=== PATIENT | male | born 1970 | race African-American/Black ===

== ENCOUNTER 2019-06-14 13:31 | Inpatient (IN) | payer MEDICARE ==
[~2019-06-14] VITALS: Ht 170.2 cm; Wt 166.5 kg
[2019-06-14] MEDS ORDERED: SODIUM CHLORIDE 0.9% 1000ML 1,000 ML IV SCH (14:00)
[2019-06-14] MEDS ORDERED: DEXAMETHASONE SOD PHOS 10 MG/1 ML VIAL IV ONE (14:30)
[2019-06-14] MEDS ORDERED: DEXAMETHASONE SOD PHOS 10 MG/1 ML VIAL ONE (14:39)
[2019-06-14] MEDS ORDERED: SODIUM CHLORIDE 0.9% 1000ML 1,000 ML ONE (14:40)
[2019-06-14] MEDS ORDERED: CEFTRIAXONE SOD 1 GM VIAL ONE ×2 (14:40)
--- NOTE | 2019-06-14 14:45 | NUR ---
[facility] CALLED FOR TRANSPORT 30MIN ETA
--- NOTE | 2019-06-14 14:54 | NUR ---
ATTEMPTED STRAIGHT CATH UNABLE TO COMPLETE PROCEDURE DUE TO OBSTRUCTION
--- NOTE | 2019-06-14 14:54 | NUR ---
REPORT TO [facility] ALL QUESTIONS ANSWERED
[2019-06-14] MEDS ORDERED: CEFTRIAXONE SOD 2 GM/NS 100 ML 100 ML IV ONE (15:00)
--- NOTE | 2019-06-14 15:22 | NUR ---
REPORT TO [facility] ALL QUESTIONS ANSWERED
--- NOTE | 2019-06-14 15:48 | NUR ---
PATIENT RECEIVED FROM [facility] VIA [facility]. TRANSPORTED TO ER ROOM 6, [facility]. NO SIGNS OF ACUTE DISTRESS NOTED DURING TRIAGE. VERBAL REPORT GIVEN TO DYLAN PEREZ.
[2019-06-14 16:37] LABS: BILIRUBIN,URINE NEGATIVE (NEGATIVE); CLARITY,URINE SL CLOUDY (CLEAR); COLOR,URINE YELLOW (YELLOW); KETONES,URINE NEGATIVE (NEGATIVE); LEUKOCYTE ESTERASE ,URINE SMALL (NEGATIVE); NITRITE,URINE NEGATIVE (NEGATIVE); PROTEIN,URINE DIPSTICK NEGATIVE (NEGATIVE); URINE UROBILINOGEN 0.2 mg/dL (0.2 - 1)
[2019-06-14 16:53] LABS: BACTERIA,URINE FEW /HPF; EPITHELIAL CELLS,URINE MODERATE /LPF; RBC,URINE 0-5 /HPF (0-5)
--- NOTE | 2019-06-14 16:54 | NUR ---
INFORMED CONSENT SIGNED AND PLACED ON PT CHART, SIGNED WITNESS PT WAS MADE AWARE OF RISKS, BENEFITS, AND ALTERNATIVE TREATMENTS FROM ER MD AT [facility].
[2019-06-14] MEDS ORDERED: LIDOCAINE HCL 1% LOCAL INJ 20 ML VIAL ONE (16:56)
[2019-06-14] MEDS ORDERED: MORPHINE SULFATE INJ 4 MG/ML INJ 1ML IV PRN (17:00)
--- NOTE | 2019-06-14 17:32 | Diagnostic Imaging Report ---
History: Headache, fall Comparison studies: None Technique: Axial images were obtained from the skull base to the vertex. Coronal and sagittal reconstructions obtained from the axial data. Dose modulation, iterative reconstruction, and/or weight based adjustment of the mA/kV was utilized to reduce the radiation dose to as low as reasonably achievable. Findings: Scalp/skull: No abnormalities. No fractures, blastic or lytic lesions. Extra-axial spaces: No masses. No fluid collections. Brain sulci: Appropriate for age. Ventricles: Normal in size and configuration. No hydrocephalus. Parenchyma: No abnormal densities. No masses, hemorrhage, acute or chronic cortical vascular insults. Sellar/suprasellar region: No abnormalities Craniocervical junction: Patent foramen magnum. No Chiari one malformation. IMPRESSION: No abnormalities . Signed by: DR Juan Rice M.D. on 06/14/2019 5:29 PM
[2019-06-14] MEDS ORDERED: VANCOMYCIN 1GM/NS 250 ML 250 ML IV STA (18:40)
[2019-06-14] MEDS ORDERED: ONDANSETRON HCL INJ 2MG/ML 2ML 2 MG/ML VIAL IV PRN (18:45)
[2019-06-14] MEDS: SODIUM CHLORIDE 0.9% 1000ML 1,000 ML IV SCH ×2 (19:46→23:16)
--- OUTSIDE RECORDS SUMMARY | 2019-06-14 21:45 | XMS REPORT ---
Author Author [facility] Address Unknown Phone Unavailable Care Team Providers Care Acid Dipper Name Role Phone CHARLES RIOS Unavailable Unavailable Problems This patient has no known problems. Allergies, Adverse Reactions, Alerts This patient has no known allergies or adverse reactions. Medications This patient has no known medications. Results Test Description Test Time Test Comments Text Results Atomic Results Result Comments CT BRAIN WO 2019-06-14 17:24:00 [place] [id number] Patient Name: RAQUEL MARTINEZ MR #: [id number] : 1970 Age/Sex: 49/M Req #: [id number] Adm Physician: Ordered by: MARION TSE MD Report #: [id number] Location: ER Room/Bed: Procedure: [id number] CT/CT BRAIN WO Exam Date: 06/14/19 Exam Time: 1700 REPORT STATUS: Signed History: Headache, fall Comparison studies: None Becca hnique: Axial images were obtained from the skull base to the vertex. Coronal and sagittal reconstructions obtained from the axial data. Dose modulation, iterative reconstruction, and/or weight based adjustment of the mA/kV was utilized to reduce the radiation dose to as low as reasonably achievable. Findings: Scalp/skull: No abnormalities. No fractures, blastic or lytic lesions. Extra-axial spaces: No masses. No fluid collections. Brain sulci: Appropriate for age. Ventricles: Normal in size and configuration. No hydrocephalus. Parenchyma: No abnormal densities. No masses, hemorrhage, acute or chronic cortical vascular insults. Sellar/suprasellar region: No abnormalities Craniocervical junction: Patent foramen magnum. No Chiari one malformation. IMPRESSION: No abnormalities . Signed by: DR Juna Rice M.D. on 06/14/2019 5:29 PM Dictated By: JUAN VICTOR MD 28 Transcribed By: MILEY on 06/14/191728 COPY TO: MARION TSE MD
--- NOTE | 2019-06-14 21:51 | NUR ---
Received report from LEE ANN Jarrett nurse. accompanied patient. Patient is A&Ox4. Patient in no distress. Call light within reach.
[2019-06-14 22:07] VITALS: BP 142/84
[2019-06-14] MEDS ORDERED: INFLUENZA VIRUS VAC SPLIT INJ 0.5 ML SYR IM SCH (23:49)
[2019-06-14 23:53] VITALS: BP 142/84
[2019-06-15] VITALS (10 sets, daily range): BP systolic 121–143; BP diastolic 59–87
[2019-06-15] MEDS: MORPHINE SULFATE INJ 4 MG/ML INJ 1ML IV PRN ×2 (00:47→10:53)
[2019-06-15 06:31] LABS: BASOPHILS % 0.2 % (0.0-1.0); EOSINOPHILS # (AUTO) 0.1 (0.0-0.4); EOSINOPHILS % 0.3 % (0.0-6.0); HEMOGLOBIN 12.6 g/dL (14.0-18.0); LYMPHOCYTES % 4.9 % (18.0-39.1); MEAN CORPUSCULAR HGB CONC 33.2 g/dL (31-35); MEAN CORPUSCULAR VOLUME 87.4 fL (81-99); MONOCYTES # (AUTO) 1.6 (0.2-0.8); MONOCYTES % 7.7 % (4.4-11.3); NEUTROPHILS # (AUTO) 17.8 (2.1-6.9); NEUTROPHILS % 86.3 % (38.7-80.0); PLATELET COUNT 165 x10e3/uL (140-360); RED BLOOD COUNT 4.35 x10e6/uL (4.3-5.7); RED CELL DISTRIBUTION WIDTH 13.5 % (11.7-14.4)
[2019-06-15] MEDS: SODIUM CHLORIDE 0.9% 1000ML 1,000 ML IV SCH ×2 (07:18→15:54)
--- NOTE | 2019-06-15 07:21 | NUR ---
Patient in bed. Call light within reach. Gave report to oncoming nurse. at bedside
--- NOTE | 2019-06-15 09:15 | NUR ---
Spoke to . aware of consult
--- NOTE | 2019-06-15 09:21 | NUR ---
chel Nichols of [facility]
[2019-06-15] MEDS ORDERED: INFLUENZA VIRUS VAC SPLIT INJ 0.5 ML SYR IM ONE (11:15)
[2019-06-15 11:58] LABS: PLATELET ESTIMATE MODERATELY DECREASED; PLATELET MORPHOLOGY COMMENT FEW LARGE
[2019-06-15] MEDS ORDERED: DIBUCAINE TOP (12:03)
[2019-06-15] MEDS ORDERED: VITAMIN D1000 UNI1 PO (12:03)
[2019-06-15] MEDS ORDERED: BUPROPION XL150 MG PO (12:03)
[2019-06-15] MEDS ORDERED: GABAPENTIN300 MG PO (12:03)
[2019-06-15] MEDS ORDERED: POLYETHYLENE GL17 GM PO (12:03)
[2019-06-15] MEDS ORDERED: bisacodyl RC (12:03)
[2019-06-15] MEDS ORDERED: LISINOPRIL10 MG PO (12:03)
[2019-06-15] MEDS ORDERED: CRESTOR10 MG PO (12:03)
[2019-06-15] MEDS ORDERED: ATENOLOL50 MG PO (12:03)
[2019-06-15] MEDS ORDERED: SENNA LAX8.6 MG PO (12:03)
[2019-06-15] MEDS ORDERED: baclofen IT (12:03)
[2019-06-15] MEDS ORDERED: FUROSEMIDE40 MG PO (12:03)
[2019-06-15] MEDS ORDERED: DOCUSATE SODIU100 MG PO (12:03)
[2019-06-15] MEDS: CEFTRIAXONE SOD 1 GM/NS 50 ML 50 ML IV SCH (15:54)
[2019-06-15] MEDS ORDERED: BACLOFEN IT SCH (18:00)
--- NOTE | 2019-06-15 18:41 | NUR ---
Patient voided. Bladder scan done post void. 19ml noted.
--- NOTE | 2019-06-15 18:50 | NUR ---
Received report from previous nurse. Call light within reach. Patient in bed. at bedside
--- NOTE | 2019-06-15 19:10 | NUR ---
Report given to oncoming nurse. Resting in bed. No s/s of acute distress noted. Side rails upx2 , call light within reach, at bedside.
[2019-06-15] MEDS: DIBUCAINE 1% TOP SCH (21:00)
[2019-06-15] MEDS: BISACODYL 10 MG SUPP PR SCH (21:00)
--- NOTE | 2019-06-15 21:52 | Consultation ---
DATE OF CONSULTATION: 06/15/2019 Neurology Consult Note HISTORY OF PRESENT ILLNESS: Mr. Coleman is a 49-year-old right-hand dominant man with past medical history significant for hypertension, hyperlipidemia, occasional headaches, and spinal cord injury at C3-C4, admitted to [facility] as an inpatient on June 14, 2019, with fever of unknown origin. On the day prior to admission, Mr. Coleman felt unwell upon awakening. Later in the day, the patient took his temperature, blood pressure, and heart rate. His temperature was reportedly 103 degrees Fahrenheit. His blood pressure was in the 180s over 100 mmHg with a pulse in the 100s. Subsequently, Mr. Coleman began to experience headache, which he described as follows: The pain was located over the left side of the head and did not radiate. The pain was described as throbbing and rated an 8 to 9/10. Associated with the headache were photophobia, mild phonophobia, and dizziness, which is further described as a vertiginous sensation. Mr. Coleman does not report an aura, visual disturbance, nausea, vomiting, or confusion associated with the headache. After developing the headache, the patient took a dose of ibuprofen, then laid down to sleep, hoping his symptoms would be resolved when he awakens next. However, upon awakening on the morning of June 14, 2019, the patient continued to be febrile with headache as described above. Mr. Coleman arose from bed and was ambulating with his walker when he experienced a fall. He remained on the floor until his arrived home to assist him in standing from the floor. At that time, his took his temperature again. Once again, it was found to be elevated. Mr. Coleman's then took him to an urgent care center for further evaluation of his symptoms. Mr. Coleman was directly admitted to [facility] as an inpatient on June 14, 2019, with a diagnosis of fever of unknown origin. Concerned the patient may have meningitis, a referral to Interventional Radiology for a lumbar puncture was made. Unfortunately, the lumbar puncture by Interventional Radiology was unsuccessful. While in the hospital, the patient has been afebrile. At present, his headache has resolved as well. As detailed above, Mr. Coleman does endorse a prior history of occasional headaches. However, he reports it has "been a while" since he last experienced the headache. In the past, when he has experienced the headache, he has taken an [id number]-[id number] analgesic and laid down to sleep for a few hours. More often than not, when he awoke, the patient's headaches had resolved. There is no known family history of primaryheadache disorders. REVIEW OF SYSTEMS: Fever, urinary incontinence, low back pain at the lumbar puncture site, headache, photophobia, phonophobia, and dizziness, which is further described as a vertiginous sensation. Otherwise, 12-point review of systems is negative. PAST MEDICAL HISTORY: Hypertension, hyperlipidemia, occasional headaches, and spinal cord injury at C3-C4. PAST SURGICAL HISTORY: Baclofen pump placement, cervical spine surgery in 2009. PAST HOSPITALIZATIONS: Surgeries/procedures, [facility]- discharge two weeks ago. FAMILY MEDICAL HISTORY: Hypertension, diabetes mellitus, and congestive heart failure. SOCIAL HISTORY: Mr. Coleman is . He is unemployed/on disability. Mr. Coleman does report a prior history of tobacco use, but he quit smoking cigarettes approximately 10 years ago. The patient endorses a prior history of heavy alcohol use as well. However, he describes his current alcohol use is occasional. There is no reported current or prior recreational drug use. HOME MEDICATIONS: Dibucaine 1% topical ointment apply topically at bedtime, atenolol 25 mg by mouth daily, baclofen pump, bisacodyl 10 mg rectal suppository at bedtime daily, bupropion XL 150 mg by mouth daily, cholecalciferol 1000 international units by mouth daily, docusate sodium 100 mg by mouth every 12 hours, furosemide 40 mg by mouth daily, gabapentin 600 mg by mouth 3 times daily, lisinopril 20 mg by mouth daily, polyethylene glycol 3350, 1 packet by mouth daily, rosuvastatin 10 mg by mouth daily, and Senna 8.6 mg by mouth every afternoon. HOSPITAL MEDICATIONS: Ceftriaxone, morphine sulfate, and Zofran. ALLERGIES: NO KNOWN DRUG ALLERGIES. NO KNOWN FOOD ALLERGIES. NO KNOWN ALLERGIES TO LATEX. NO KNOWN ALLERGIES TO IODINE OR OTHER CONTRAST MATERIALS. PHYSICAL EXAMINATION: VITAL SIGNS: Height 67 inches, weight 350.56 pounds, BMI 54.9 kg/m2, blood pressure 143/64 mmHg, pulse 68 beats per minute, respiratory rate 22 breaths per minute, and oxygen saturation 96% on room air. GENERAL: The patient is awake and alert, does not appear distressed. Morbidly obese. HEENT: Normocephalic, atraumatic. Pupils are equal, round, and reactive to light. Moist mucous membranes. NECK: Supple. No appreciable thyromegaly. No appreciable carotid bruits. CARDIOVASCULAR: S1, S2, regular rate and rhythm. No murmurs, rubs, or gallops. RESPIRATORY: Clear to auscultation bilaterally. No wheezes, rhonchi, or rales. EXTREMITIES: The skin is warm and dry. No clubbing or cyanosis. 1+ pretibial pitting edema is appreciated. The posterior tibial and dorsalis pedis pulses are 1+ and symmetric. SKIN: No rashes or lesions. NEUROLOGIC: Memory/Attention: The patient is awake and alert, oriented to person, place, time, and situation. Cranial Nerves: Cranial nerve I - not tested. Cranial nerve II, III, IV, and - pupils are equal and round, react briskly to light (from 4 mm to 2 mm). Extraocular movements intact. No nystagmus. Cranial nerve V - sensation to light touch and pinprick is diminished over the right V1 through V3 distributions. Strength in the temporalis and masseter muscles is within normal limits. Cranial nerve VII - the face is symmetric as are all facial movements. Strength is within normal limits. Cranial nerve VIII - hearing is intact to finger rub bilaterally. Cranial nerve IX, X - soft palate elevates equally and symmetrically. Cranial nerve XI - normal strength of the bilateral sternocleidomastoid and trapezius muscles. Cranial nerve XII - the tongue protrudes midline and moves symmetrically from viqu-sv-ennt. Strength: Bulk is normal. Strength in the left arm is 5/5. Strength in the right arm is 3- to 3/5. Strength in the left leg is 5- to 5/5. Strength in the right leg is 4- to 4/5. Tone is increased in all four extremities, right arm and leg greater than the left arm and leg. DTRs: Deep tendon reflexes are 3+ and symmetric at the triceps, biceps, and brachioradialis. Deep tendon reflexes are trace and symmetric at the patellas. Deep tendon reflexes are absent and symmetric at the Achilles. Plantar responses are mute bilaterally. Sensation: Sensation is diminished to light touch and pinprick over the right arm and right leg. Cerebellar: Deferred. Gait: Deferred. Speech: Spontaneous speech is normal without appreciable dysarthria or aphasia. Repetition is intact. Involuntary movements: None. Pronator Drift: None. LABORATORY DATA: Lactic acid 10.4, 13.1. The CBC with differential and platelets reveals an elevated white blood cell count of 20.69 with a left shift with 86.3% neutrophils, 4.9% lymphocytes, 7.7% monocytes, 0.3% eosinophils, and 0.2% basophils. The hemoglobin and hematocrit are 12.6 and 38.0, respectively. The platelet count is 165. A urinalysis reveals slightly cloudy urine with small leukocyte esterase, 6-10 white blood cells, and moderate urine epithelial cells. A urine culture reveals a preliminary result of no growth at 18 to 24 hours. Blood cultures are pending x2. DIAGNOSTIC STUDIES: CT of the brain without contrast 06/14/2019: On my review, there is no evidence of recent or remote large territorial ischemia, hemorrhage, mass, or mass effect. Cerebral volumes appear appropriate for age. There are no findings suggestive of chronic small vessel ischemic disease. ASSESSMENT AND PLAN: Mr. Coleman is a 49-year-old right-hand dominant man with past medical history significant for a partial spinal cord injury at C3-C4, hypertension, hyperlipidemia, and occasional headaches admitted to [facility] as an inpatient on June 14, 2019, with fever of unknown origin. Due to concern for meningitis, a lumbar puncture was attempted by IR, but was not successful. The Neurology Service is consulted for evaluation and treatment of headaches, which have resolved. The patient has undergone a thorough neurological examination with findings detailed above. His laboratory data and other diagnostic studies have been reviewed and are documented above. Based on the description of his headache as provided by Mr. Coleman as well as his history of occasional headaches, I strongly suspect the patient has migraine without aura, not intractable, without status migrainosus. As the patient's headache has resolved at present, recommendations for further treatment are unnecessary. Mr. Coleman will continue to be monitored clinically for recurrence of headache during his hospitalization. Thank you for this consultation. TIME SPENT: 50 minutes. Yolette Boyd MD CP/COLLEEN /[id number] MTDD
[2019-06-15] MEDS: SIMVASTATIN 20 MG TAB PO SCH (21:56)
[2019-06-15] MEDS: GABAPENTIN 300 MG CAP PO SCH (21:56)
--- NOTE | 2019-06-15 22:12 | Consultation ---
DATE OF CONSULTATION: REASON FOR CONSULTATION: Fever, chills, body aches. HISTORY OF PRESENT ILLNESS: This patient, who is a very pleasant 49-year-old male, morbidly obese patient, chronic back pain, comes in with fever and chills and headache started for a 1 day. There was some urgency or frequency. The patient came to an outside facility. There was a concern that he may have meningitis and he was transferred here. A CAT scan of the head was done, was negative. Blood cultures ordered, which are still pending. White count was 20.69, hemoglobin 12, hematocrit 38. His sodium was 140, potassium 4.2, creatinine 1.10. Liver enzyme within normal limit. The patient was sent here. Currently, the patient denies any headache, nausea, vomiting, or diarrhea. Actually, he is lying in bed comfortably. He has had just generalized aches and pain. He had no fever by the way since admission. PAST MEDICAL HISTORY: Otherwise denies. PAST SURGICAL HISTORY: Back surgery. ALLERGIES: NKA. SOCIAL HISTORY: There is no smoking, drug abuse, or alcohol abuse. FAMILY HISTORY: Otherwise unremarkable. REVIEW OF SYSTEMS: HEENT: Negative. There is no headache as mentioned above. : There is some urgency or frequency. SKIN: There is no rash. Otherwise all other symptoms within normal limits except for the chronic back pain as mentioned above. PHYSICAL EXAMINATION: GENERAL: He is currently alert, oriented, does not seem to be in acute distress. VITAL SIGNS: Stable. Currently afebrile. HEENT: Not icteric. NECK: Supple. No JVD. No lymphadenopathy. No thyromegaly. CHEST: Clear bilateral. HEART: S1, S2. ABDOMEN: Soft, obese. No tenderness. No hepatosplenomegaly. EXTREMITIES: No edema. IMPRESSION: Sepsis on admission. Source is unclear. It could be urinary tract infection. He has some urgency and frequency. I do not think he has meningitis. He has no headache now. His neck is supple and he is feeling good otherwise. We will keep him on Rocephin 1 g q.12h since he is obese with a BMI of 54.9. Recheck CBC in the morning. Reassess in the morning. Call me for any new symptoms. Discussed with him and his at length. We will follow with you. MD SHARRI John /[id number]
[2019-06-16] VITALS (7 sets, daily range): BP systolic 119–168; BP diastolic 61–84
[2019-06-16] MEDS: CEFTRIAXONE SOD 1 GM/NS 50 ML 50 ML IV SCH ×2 (03:15→14:54)
[2019-06-16] MEDS: SODIUM CHLORIDE 0.9% 1000ML 1,000 ML IV SCH ×3 (04:30→18:43)
--- NOTE | 2019-06-16 07:10 | NUR ---
Gave report to oncoming nurse. Call light within reach. Patient in bed. at bedside.
[2019-06-16 07:15] LABS: BASOPHILS % 0.2 % (0.0-1.0); EOSINOPHILS % 0.2 % (0.0-6.0); HEMATOCRIT 34.3 % (38.2-49.6); HEMOGLOBIN 11.5 g/dL (14.0-18.0); LYMPHOCYTES # (AUTO) 1.9 (1.0-3.2); LYMPHOCYTES % 13.3 % (18.0-39.1); MEAN CORPUSCULAR HGB CONC 33.5 g/dL (31-35); MEAN CORPUSCULAR VOLUME 86.4 fL (81-99); MONOCYTES # (AUTO) 1.2 (0.2-0.8); MONOCYTES % 8.6 % (4.4-11.3); NEUTROPHILS # (AUTO) 11.1 (2.1-6.9); NEUTROPHILS % 77.2 % (38.7-80.0); PLATELET COUNT 153 x10e3/uL (140-360); RED BLOOD COUNT 3.97 x10e6/uL (4.3-5.7); RED CELL DISTRIBUTION WIDTH 13.6 % (11.7-14.4)
[2019-06-16] MEDS: GABAPENTIN 300 MG CAP PO SCH ×3 (08:54→22:12)
[2019-06-16] MEDS: POLYETHYLENE GLYCOL 3350 17 GM PACK PO SCH (08:54)
[2019-06-16] MEDS: DOCUSATE SODIUM 100 MG CAP PO SCH ×2 (08:54→16:51)
[2019-06-16] MEDS: FUROSEMIDE 40 MG TAB PO SCH (08:54)
--- NOTE | 2019-06-16 08:54 | Diagnostic Imaging Report ---
PROCEDURE: Lumbar puncture - aborted Procedural Personnel Attending physician(s): Renetta Zhang MD Fellow physician(s): None Resident physician(s): None Advanced practice provider(s): None Pre-procedure diagnosis: Fever, headache Post-procedure diagnosis: Same Indication: Fever, headache, sepsis, concern for meningitis Additional clinical history: None Complications: No immediate complications. IMPRESSION: Unsuccessful fluoroscopically guided lumbar puncture. Attempts made at L3-4, L4-5, and L2-3, none of which achieved CSF return. The patient's body habitus results in an extremely deep course to the spinal canal. In addition, overlying baclofen pump on all lateral view images obscures needle visualization. Procedure was aborted as the patient was uncomfortable and preferred to avoid further attempts. PROCEDURE SUMMARY: - Attempted fluoroscopically guided lumbar puncture at L3-4, L4-5, L2-3. - Procedure aborted due to no CSF return at all levels despite numerous attempts at multiple levels. PROCEDURE DETAILS: Pre-procedure Consent: Informed consent for the procedure including risks, benefits and alternatives was obtained and time-out was performed prior to the procedure. Preparation: The site was prepared and draped using maximal sterile barrier technique including cutaneous antisepsis. Anesthesia/sedation Level of anesthesia/sedation: Local 1% lidocaine Lumbar Puncture Bulkhead Carpenter images were obtained. Under image guidance and via a translaminar approach, a needle was advanced toward the thecal space. Target level: L3-4, L4-5, L2-3 Radiation Dose Fluoroscopy time (minutes): 2.3 Reference air kerma (mGy): 74.3 Additional Details Additional description of procedure: None Equipment details: None Specimens removed: None Estimated blood loss (mL): Less than 10 Attestation Signer name: Renetta Zhang MD I attest that I was present for the entire procedure. I reviewed the stored images and agree with the report as written. Signed by: Renetta Zhang MD on 06/16/2019 8:51 AM
[2019-06-16] MEDS: ATENOLOL 50 MG TAB PO SCH (08:55)
[2019-06-16] MEDS: LISINOPRIL 20 MG TAB PO SCH (08:55)
[2019-06-16] MEDS: SENNOSIDES 8.6 MG TAB PO SCH (08:55)
[2019-06-16] MEDS: BUPROPION HCL 150 MG TABCR PO SCH (08:55)
[2019-06-16] MEDS: CHOLECALCIFEROL 1,000 UNIT TAB PO SCH (08:55)
[2019-06-16] MEDS ORDERED: BISACODYL 10 MG SUPP PR ONE (13:00)
[2019-06-16] MEDS ORDERED: CITRATE OF MAGNESIA 300ML BOTTLE PO ONE (16:00)
[2019-06-16] MEDS: BISACODYL 10 MG SUPP PR SCH (21:00)
[2019-06-16] MEDS: DIBUCAINE 1% TOP SCH (21:00)
[2019-06-16] MEDS: SIMVASTATIN 20 MG TAB PO SCH (22:12)
[2019-06-17] MEDS: SODIUM CHLORIDE 0.9% 1000ML 1,000 ML IV SCH ×2 (00:52→10:54)
--- NOTE | 2019-06-17 01:14 | Consultation ---
DATE OF CONSULTATION: 06/16/2019 Urology Consultation REASON FOR CONSULTATION: Difficulty urinating. HISTORY OF PRESENT ILLNESS: Jeffrey Coleman is a 49-year-old man, who has been an incomplete quadriplegic since 2009. The patient had disk problems of his cervical spine. He underwent fusion and decompression and this left him as a partial quadriplegic. The patient is able to walk, but he has had some voiding difficulties and what sounds like obstructive urinary symptoms as one would expect with BPH. He is complaining of right lower quadrant abdominal pain and has had significant constipation that is now improving during his hospitalization with medical management that he has been receiving. The patient denies any previous urolithiasis, hematuria, or dysuria. Denies any problems with urinary tract infections. The patient does have some urinary incontinence. PAST MEDICAL SURGICAL HISTORY: 1. Cervical spine surgery as mentioned above. 2. Incomplete quadriplegia. 3. Status post baclofen pump implantation. 4. Ex-smoker. 5. Hypertension. FAMILY HISTORY: Noncontributory to the active urological problems. ALLERGIES: NONE KNOWN. CURRENT MEDICATIONS: Please refer to the MAR. REVIEW OF SYSTEMS: Discussed as above in history of present illness and past medical history, otherwise negative for all systems except for admission for fever of unknown origin. PHYSICAL EXAMINATION: GENERAL: Very pleasant man, moving around the room, and in no apparent distress. VITAL SIGNS: His temperature maximum for this hospitalization 99.9 and his vital signs are stable. ABDOMEN: Obese, soft, nondistended, and nontender without costovertebral angle tenderness. Kidneys not palpable without hepatosplenomegaly. No obvious evidence of hernia. GENITOURINARY: Testes descended bilaterally. Testes and epididymides bilaterally palpably normal. The patient has a circumcised male phallus with normal meatus without any lesion. Digital rectal examination is deferred at the present time. For the remaining physical examination systems, please refer to admission history and physical in the chart in the ERT sheet. LABORATORY STUDIES: Urine culture is negative. White blood cell count was elevated at 20,690, today it is 14,400; hemoglobin is 11.5; platelets is 153,000. Urinalysis significant for 6 to 10 wbc's. No chemistries showing renal functions have been done. ASSESSMENT: 1. Benign prostatic hyperplasia symptomatology. 2. Constipation that is improving. 3. Neurogenic bladder. 4. Urinary incontinence. 5. Fever of unknown origin. 6. Obesity. 7. Possible urinary tract infections. 8. Leukocytosis. 9. Anemia. 10. Right lower quadrant abdominal pain. PLAN: 1. I will order serum chemistries. 2. I will order CT scan of the abdomen and pelvis. 3. Ongoing urological followup is must. 4. Ideally urodynamic study should be performed as an outpatient in the office. 5. Possible cystoscopic examination may be indicated. Thank you very much for involving us in care of your patient. We will be happy to follow along with you as well as an outpatient. Mathew MD Shmuel OH/MODL /[id number] cc: ANA MALAGON MD
[2019-06-17] MEDS: CEFTRIAXONE SOD 1 GM/NS 50 ML 50 ML IV SCH (02:57)
[2019-06-17 04:00] VITALS: BP 134/71
[2019-06-17 05:42] LABS: BASOPHILS % 0.5 % (0.0-1.0); EOSINOPHILS # (AUTO) 0.1 (0.0-0.4); EOSINOPHILS % 0.9 % (0.0-6.0); HEMATOCRIT 35.1 % (38.2-49.6); HEMOGLOBIN 11.5 g/dL (14.0-18.0); LYMPHOCYTES # (AUTO) 1.4 (1.0-3.2); LYMPHOCYTES % 17.9 % (18.0-39.1); MEAN CORPUSCULAR HEMOGLOBIN 28.6 pg (28-32); MEAN CORPUSCULAR HGB CONC 32.8 g/dL (31-35); MEAN CORPUSCULAR VOLUME 87.3 fL (81-99); MONOCYTES # (AUTO) 1.2 (0.2-0.8); MONOCYTES % 14.7 % (4.4-11.3); NEUTROPHILS # (AUTO) 5.1 (2.1-6.9); NEUTROPHILS % 65.5 % (38.7-80.0); PLATELET COUNT 169 x10e3/uL (140-360); RED BLOOD COUNT 4.02 x10e6/uL (4.3-5.7); RED CELL DISTRIBUTION WIDTH 13.6 % (11.7-14.4)
[2019-06-17 06:14] LABS: ANION GAP 10.8 mmol/L (8-16); BLOOD UREA NITROGEN 12 mg/dL (7-26); BUN/CREATININE RATIO 13 (6-25); CALCIUM 8.3 mg/dL (8.4-10.2); CARBON DIOXIDE 26 mmol/L (22-29); CHLORIDE 106 mmol/L (98-107); CREATININE, SERUM 0.95 mg/dL (0.72-1.25); EST GLOMERULAR FILTRATION RATE > 60 ML/MIN (60-); GLUCOSE 91 mg/dL (74-118); POTASSIUM 3.8 mmol/L (3.5-5.1); SODIUM 139 mmol/L (136-145)
--- NOTE | 2019-06-17 07:48 | Diagnostic Imaging Report ---
EXAM: CT Abdomen and Pelvis WITHOUT contrast INDICATION: ^RLQ PAIN, NEUROGENIC BLADDER, R/O STONE ^[id number] ^[id number] COMPARISON: None. TECHNIQUE: Abdomen and pelvis were scanned utilizing a multidetector helical scanner from the lung base to the pubic symphysis without administration of IV contrast. Absence of intravenous contrast decreases sensitivity for detection of focal lesions and vascular pathology. Coronal and sagittal reformations were obtained. Renal stone protocol was performed. IV CONTRAST: None. ORAL CONTRAST: Water RADIATION DOSE: Total DLP: 1551.3 mGy*cm Estimated effective dose: (DLP x 0.015 x size factor) mSv COMPLICATIONS: None FINDINGS: LINES and TUBES: Neurostimulator device in the left flank with leads entering at the level of L1 and L2 vertebral body. Mild fat stranding within the subcutaneous fat of the posterior abdominal wall at the entering site of the lead. No fluid collections. LOWER THORAX: Unremarkable HEPATOBILIARY: No focal hepatic lesions. No biliary ductal dilation. GALLBLADDER: No radio-opaque stones or sludge. No wall thickening. SPLEEN: No splenomegaly. PANCREAS: No focal masses or ductal dilatation. ADRENALS: No adrenal nodules KIDNEYS/URETERS: No hydronephrosis. No cystic or solid mass lesions. No stones. GI TRACT: No abnormal distention, wall thickening, or evidence of bowel obstruction. Appendix is normal. PELVIC ORGANS/BLADDER: Moderate distention of the urinary bladder. The prostate is mildly enlarged measuring 5.9 cm in transverse diameter. LYMPH NODES: No lymphadenopathy. VESSELS: Unremarkable. PERITONEUM / RETROPERITONEUM: No free air or fluid. BONES: Unremarkable. SOFT TISSUES: Unremarkable. IMPRESSION: 1. No calcified nephroureteral lithiasis. No hydronephrosis. 2. Moderate distention of the urinary bladder without calcified stones. 3. Mild enlargement of the prostate. Signed by: Dr. Tierney Pride M.D. on 06/17/2019 7:45 AM
[2019-06-17 08:31] VITALS: BP 125/68
[2019-06-17 09:12] VITALS: BP 125/68
[2019-06-17] MEDS: POLYETHYLENE GLYCOL 3350 17 GM PACK PO SCH (09:12)
[2019-06-17] MEDS: DOCUSATE SODIUM 100 MG CAP PO SCH (09:12)
[2019-06-17] MEDS: FUROSEMIDE 40 MG TAB PO SCH (09:12)
[2019-06-17] MEDS: GABAPENTIN 300 MG CAP PO SCH (09:12)
[2019-06-17] MEDS: SENNOSIDES 8.6 MG TAB PO SCH (09:13)
[2019-06-17] MEDS: BUPROPION HCL 150 MG TABCR PO SCH (09:13)
[2019-06-17] MEDS: CHOLECALCIFEROL 1,000 UNIT TAB PO SCH (09:13)
[2019-06-17] MEDS: ATENOLOL 50 MG TAB PO SCH (09:13)
[2019-06-17] MEDS: LISINOPRIL 20 MG TAB PO SCH (09:13)
--- NOTE | 2019-06-17 09:44 | NUR ---
125CC PVR NOTED AFTER PT VOIDED INTO URINAL 375CC OF CLEAR URINE
--- NOTE | 2019-06-17 09:49 | NUR ---
NOTIFIED MD STONE OF PVR NO ORDERS RECEIVED
[2019-06-17] MEDS ORDERED: AUGMENTIN 875-1 EACH PO (10:26)
--- NOTE | 2019-06-17 10:28 | NUR ---
INFECTIOUS DISEASE AND UROLOGY HAVE ROUNDED AND CLEARED PT FOR DISCHARGE
--- NOTE | 2019-06-17 12:06 | Discharge Summary ---
ADMISSION DIAGNOSES: 1. Fever of unknown origin. 2. Quadriparetic. 3. Extreme obesity, BMI is 57. 4. Hypertensive heart disease. 5. Hyperlipidemia. DISCHARGE DIAGNOSES: 1. Fever of unknown origin, resolved. 2. Leukocytosis, resolved. 3. Quadriparetic. 4. Extreme obesity, BMI is 57. 5. Hypertensive heart disease. 6. Hyperlipidemia. HOSPITAL COURSE: This is a 49-year-old man, who has known history of quadriparesis. The patient still, however, ambulates with a rolling walker. The patient was admitted with a diagnosis of fever and leukocytosis of unknown origin. During this hospitalization, CT of the abdomen and pelvis did not reveal any obvious pathology other than distended bladder. The patient was seen by Urology and was cleared for discharge. The patient had a CT of the brain during hospitalization that was unremarkable. The patient also apparently underwent lumbar puncture using C-arm fluoroscopy, but unfortunately it was unsuccessful. The patient improved clinically with intravenous ceftriaxone. His brief hospitalization was unremarkable. The patient was seen by staff neurologist, namely Dr. Yolette Boyd. The neurologist was consulted because of the patient's persistent headache. It was felt the headache was secondary to migraine without aura and not intractable. The patient's brief hospitalization was unremarkable. On admission, his white blood cell count was 20,600 with 86% segmenters. Just prior to discharge, white blood cell count 7800 with 65% segmenters. The patient was also seen by Infectious Disease specialist during hospitalization, Dr. Dodd, who recommend the patient start oral Augmentin. CONDITION ON DISCHARGE: The patient's condition on discharge was stable. DISCHARGE MEDICATIONS: 1. Augmentin 875 mg p.o. b.i.d. for 7 days. 2. Senokot 8.6 mg daily. 3. Lisinopril 20 mg daily. 4. Vitamin D3 1000 daily. 5. Bupropion 150 mg daily. 6. Atenolol 25 mg daily. 7. MiraLAX 17 g daily. 8. Gabapentin 600 mg t.i.d. 9. Furosemide 40 mg daily. 10. Docusate 100 mg b.i.d. 11. Simvastatin 10 mg at bedtime. FOLLOWUP INSTRUCTIONS: The patient is instructed to follow up with his primary care physician, Dr. Servando To within 2 weeks. MD DUNG Moser/COLLEEN /[id number] cc: MD Yolette John MD Ori Hampel, MD Steve S Haddad, MD
--- NOTE | 2019-06-17 12:11 | NUR ---
DISCHARGE INSTRUCTIONS AND PRESCRIPTIONS GIVEN PT VERBALIZED UNDERSTANDING IV DC PRESSURE DRESSING APPLIED AND TAPED. PT IS OFF UNIT TO HOME
== END 2019-06-17 12:11 | disposition home or self-care (01) | DRG 871 ==
LOC: FSED 13:31 → ERHOLD 21:43 → MED/SURG 21:51
DX: A41.9 Sepsis, unspecified organism (principal); R53.2 Functional quadriplegia; Z68.43 Body mass index [BMI] 50.0-59.9, adult; N39.0 Urinary tract infection, site not specified; N13.8 Other obstructive and reflux uropathy; Z91.81 History of falling; G47.33 Obstructive sleep apnea (adult) (pediatric); I10 Essential (primary) hypertension; R32 Unspecified urinary incontinence; E66.01 Morbid (severe) obesity due to excess calories; E78.5 Hyperlipidemia, unspecified; S14.103D Unspecified injury at C3 level of cervical spinal cord, subsequent encounter; G43.009 Migraine without aura, not intractable, without status migrainosus; N40.1 Benign prostatic hyperplasia with lower urinary tract symptoms; K59.00 Constipation, unspecified; N31.9 Neuromuscular dysfunction of bladder, unspecified; D64.9 Anemia, unspecified
CPT/HCPCS: 36415; 62270; 70450; 74176; 77003; 80048; 80053; 81001; 83605; 85025; 87040; 87086; 87400; 94660; 99284; J0696; J1100; J2001; J2270; J3370; J7030